=== PATIENT | male | born 1970 | race Caucasian/White ===

== ENCOUNTER 2022-12-01 08:39 | Day surgery (SDC) | payer OTHER ==
[~2022-12-01] VITALS: Ht 152.4 cm; Wt 129.3 kg
[2022-12-01] MEDS ORDERED: MIDAZOLAM 2 MG/2 ML VIAL ONE (09:39)
[2022-12-01] MEDS ORDERED: LIDOCAINE 2% 100 MG/5 ML UJET TP ONE (09:39)
[2022-12-01] MEDS ORDERED: diphenhydrAMINE 50 MG/ML VIAL ONE (09:39)
[2022-12-01] MEDS ORDERED: fentaNYL citrate 0.05 MG/ML VIAL ONE (09:39)
[2022-12-01] MEDS ORDERED: diphenhydrAMINE 50 MG/ML VIAL IVP ONE (12:30)
[2022-12-01] MEDS ORDERED: MIDAZOLAM 2 MG/2 ML VIAL IVP ONE (12:30)
[2022-12-01] MEDS ORDERED: fentaNYL citrate 0.05 MG/ML VIAL IVP ONE (12:30)
== END 2022-12-01 10:50 | disposition home or self-care (01) ==
LOC: MOR 08:39 → MMU 08:41 → MOR 10:39
PROVIDERS: ATTEND Internal Medicine Gastroenterology
DX: K62.5 Hemorrhage of anus and rectum (principal); D12.2 Benign neoplasm of ascending colon; K64.8 Other hemorrhoids; K57.30 Diverticulosis of large intestine without perforation or abscess without bleeding; K60.1 Chronic anal fissure; I10 Essential (primary) hypertension; E78.5 Hyperlipidemia, unspecified; G47.30 Sleep apnea, unspecified; Z99.89 Dependence on other enabling machines and devices; Z79.01 Long term (current) use of anticoagulants; Z79.899 Other long term (current) drug therapy
CPT/HCPCS: 45385; J1200; J2250; J3010; 88305

== ENCOUNTER 2023-02-15 07:19 | Day surgery (SDC) | payer OTHER ==
[~2023-02-15] VITALS: Ht 177.8 cm; Wt 127.0 kg
[2023-02-15] MEDS ORDERED: PROPOFOL 200 MG/20 ML VIAL IV ONE ×2 (08:25→09:14)
[2023-02-15] MEDS ORDERED: fentaNYL citrate 0.05 MG/ML VIAL ONE (08:25)
[2023-02-15] MEDS ORDERED: MIDAZOLAM 2 MG/2 ML VIAL ONE (08:25)
[2023-02-15] MEDS ORDERED: BUPIVACAINE MPF 0.25% 10 ML VIAL INJ ONE (08:52)
[2023-02-15] MEDS ORDERED: LIDOCAINE/EPI MPF 1%1:200000 30 ML VIAL INJ ONE (08:52)
== END 2023-02-15 11:00 | disposition home or self-care (01) ==
LOC: MDS 07:19 → MMU 07:19 → MDS 11:00
PROVIDERS: ATTEND Surgery
DX: K60.2 Anal fissure, unspecified (principal); I48.91 Unspecified atrial fibrillation; E66.9 Obesity, unspecified; I10 Essential (primary) hypertension; E78.5 Hyperlipidemia, unspecified; Z79.899 Other long term (current) drug therapy
CPT/HCPCS: 46080; 71045; 93005; J2001; J2250; J2704; J3010; J3490; J7120